=== PATIENT | male | born 1950 | race American Indian/Alaskan Native ===

== ENCOUNTER 2018-11-24 03:20 | Emergency (ER) | payer MEDICARE ==
[2018-11-24] MEDS ORDERED: ZOFRAN IV ONE (03:31)
[2018-11-24] MEDS ORDERED: MORPHINE IV ONE (03:33)
--- NOTE | 2018-11-24 03:36 | Emergency Department Report ---
ED Male HPI - General Stated complaint: HEMATURIA X 2 Time Seen by Provider: 11/24/18 03:25 Source: patient Limitations: No Limitations - History of Present Illness Initial comments: Mr. Gonzales is a 68 yo male who presents with severe pelvic discomfort and hematuria. Urinary retention, with urgency since this evening. No previous hx of prostate issues or catheter. REceives care at [facility] Followed at [facility] Dr. Chase OCASIO Complaint: other (hematuria, urinary retention) -: Gradual, This evening Location: penis Severity: severe Quality: aching Consistency: constant Improves with: none, supine blood in urine - Related Data Previous Rx's Medication Instructions Recorded Last Taken Type HYDROcodone/APAP 5-325 [[place] 1 each PO Q6HR PRN #15 tablet 11/24/18 Unknown Rx 5/325] cephALEXin [Keflex] 500 mg PO Q6HR 10 Days #40 capsule 11/24/18 Unknown Rx ED Review of Systems ROS: Stated complaint: HEMATURIA X 2 Other details as noted in HPI Comment: All other systems reviewed and negative Constitutional: denies: fever, malaise Cardiovascular: denies: chest pain ED Past Medical Hx - Past Medical History Previous Medical History?: Yes Hx Psychiatric Treatment: Yes (anxiety) - Surgical History Additional Surgical History: Penile implant, gastric bypass - Medications Home Medications: Home Medications Medication Instructions Recorded Confirmed Last Taken Type HYDROcodone/APAP 5-325 [[place] 1 each PO Q6HR PRN #15 tablet 11/24/18 Unknown Rx 5/325] cephALEXin [Keflex] 500 mg PO Q6HR 10 Days #40 capsule 11/24/18 Unknown Rx ED Physical Exam - General General appearance: alert, in no apparent distress - Head Head exam: Present: atraumatic, normocephalic - Eye Eye exam: Present: normal appearance - ENT ENT exam: Present: mucous membranes moist - Neck Neck exam: Present: normal inspection, full ROM - Respiratory Respiratory exam: Present: normal lung sounds bilaterally. Absent: respiratory distress, wheezes - Cardiovascular Cardiovascular Exam: Present: regular rate, normal rhythm, normal heart sounds. Absent: systolic murmur, diastolic murmur, rubs, gallop - GI/Abdominal GI/Abdominal exam: Present: soft, normal bowel sounds. Absent: distended, tenderness, guarding, rebound - Rectal Rectal exam: Present: deferred - Extremities Exam Extremities exam: Present: normal inspection - Back Exam Back exam: Present: normal inspection - Neurological Exam Neurological exam: Present: alert, oriented X3 - Psychiatric Psychiatric exam: Present: normal affect, normal mood - Skin Skin exam: Present: warm, dry, intact, normal color. Absent: rash ED Course Vital Signs 11/24/18 11/24/18 11/24/18 03:32 03:42 04:00 Temperature 98.2 F Pulse Rate 88 76 Respiratory 15 16 13 Rate Blood Pressure 130/81 116/76 Blood Pressure 130/81 [Left] O2 Sat by Pulse 99 93 Oximetry ED Medical Decision Making - Lab Data Result diagrams: 11/24/18 03:43 11/24/18 03:43 Laboratory Results - last 24 hr 11/24/18 11/24/18 11/24/18 03:43 03:43 03:52 WBC 6.9 RBC 4.10 Hgb 13.5 Hct 38.5 MCV 94 MCH 33 H MCHC 35 H RDW 15.2 Plt Count 209 Lymph % (Auto) 14.2 [place] % (Auto) 8.5 H Eos % (Auto) 1.3 Baso % (Auto) 0.7 Lymph # 1.0 L [place] # 0.6 Eos # 0.1 Baso # 0.1 Seg Neutrophils % 75.3 H Seg Neutrophils # 5.2 Sodium 135 L Potassium 4.0 Chloride 99.5 Carbon Dioxide 21 L Anion Gap 19 BUN 6 L Creatinine 0.6 L Estimated GFR > 60 BUN/Creatinine Ratio 10 Glucose 94 Calcium 8.9 Urine Color Brown Urine Turbidity Slightly-cloudy Urine pH 5.0 Ur Specific [place] 1.012 Urine Protein 100 mg/dl Urine Glucose (UA) Neg Urine Ketones Neg Urine Blood Mod Urine Nitrite Neg Urine Bilirubin Neg Urine Urobilinogen < 2.0 Ur Leukocyte Esterase Neg Urine WBC (Auto) < 1.0 Urine RBC (Auto) > 182.0 - Medical Decision Making Mr. Gonzales presents with hematuria and urinary retention. No recent intercourse or trauma to area. Differential diagnosis includes: Cystitis, malignancy, prostatitis albrecht catheter inserted, hematuria, draining prescribed norco and keflex dc'd home referred to urology Critical care attestation.: If time is entered above; I have spent that time in minutes in the direct care of this critically ill patient, excluding procedure time. ED Disposition Clinical Impression: Urinary retention, Hematuria Disposition: [id number] TO HOME OR SELFCARE Is pt being admited?: No Does the pt Need Aspirin: No Condition: Stable Instructions: Urinary Retention in Men (ED), Albrecht Catheter Placement and Care (ED), Acute Hematuria (ED), Urinary Leg Bag (GEN) Prescriptions: cephALEXin [Keflex] 500 mg PO Q6HR 10 Days #40 capsule HYDROcodone/APAP 5-325 [[place] 5/325] 1 each PO Q6HR PRN #15 tablet PRN Reason: Pain Referrals: ABDI HALEY MD [Staff Physician] - 3-5 Days
[2018-11-24 04:05] LABS: Basophils # (Auto) 0.1 K/mm3 (0.0-0.1); Basophils % (Auto) 0.7 % (0.0-1.8); Eosinophils # (Auto) 0.1 K/mm3 (0.0-0.4); Eosinophils % (Auto) 1.3 % (0.0-4.3); Hematocrit 38.5 % (35.5-45.6); Hemoglobin 13.5 gm/dl (11.8-15.2); Lymphocytes % (Auto) 14.2 % (13.4-35.0); Mean Corpuscular HGB Conc 35 % (32-34); Mean Corpuscular Volume 94 fl (84-94); Monocytes # (Auto) 0.6 K/mm3 (0.0-0.8); Monocytes % (Auto) 8.5 % (0.0-7.3); Platelet Count 209 K/mm3 (140-440); Red Cell Distribution Width 15.2 % (13.2-15.2)
[2018-11-24 04:13] LABS: BUN/Creatinine Ratio 10; Blood Urea Nitrogen 6 mg/dL (9-20); Calcium 8.9 mg/dL (8.4-10.2); Hemolysis Index 20
[2018-11-24 04:35] LABS: Bilirubin,Urine NEG (Negative); Blood,Urine MOD (Negative); Urobilinogen,Urine < 2.0 mg/dL (<2.0)
[2018-11-24 04:37] LABS: RBC,Urine > 182.0 /HPF (0.0-6.0)
[2018-11-24 04:38] LABS: Color,Urine Brown (Yellow); WBC,Urine < 1.0 /HPF (0.0-6.0)
[2018-11-24] MEDS ORDERED: KEFLEX PO ONE (04:57)
[2018-11-24] MEDS ORDERED: PERCOCET 5/325 PO ONE (04:57)
[2018-11-24 06:50] VITALS: BP 130/85
== END 2018-11-24 06:30 | disposition home or self-care (01) ==
LOC: ED 03:20
DX: R33.9 Retention of urine, unspecified (principal); R10.2 Pelvic and perineal pain; R31.9 Hematuria, unspecified
CPT/HCPCS: 36415; 51702; 80048; 81001; 85025; 96374; 96375; 99284; J2270; J2405